=== PATIENT | male | born 1950 | race Caucasian/White ===

== ENCOUNTER → 2017-04-01 | Outpatient (CLI) | payer OTHER ==
[~2017-04-01] MED LIST: ALTACE5 MG PO; ATENOLOL PO; BUFFERED ASPIRIN; BUFFERED ASPIRIN PO; CHANTIX1 MG PO; CLOPIDOGREL; COMBIRESP IH; CRESTOR; GLUCOPHAGE500 MG/TAB PO; HCTZ PO; LIPITOR20 MG PO; LORTAB 5/500 501 TAB PO; NAPROXEN EC500 MG PO; NIACIN PO; NIASPAN375 MG PO; NITROQUICK0.4 MG SL; ZOCOR5 MG PO
== END ==
LOC: COL.RAD 11:59
DX: M79.661 Pain in right lower leg (principal)

== ENCOUNTER → 2017-04-28 | Outpatient (CLI) | payer OTHER | LOC: COL.RAD 04-22 13:30 | DX: M25.552 Pain in left hip (principal) | CPT/HCPCS: G0260; J3301 ==

== ENCOUNTER → 2018-03-01 | Outpatient (CLI) | payer OTHER | LOC: COL.RAD 12:44 | DX: M51.27 Other intervertebral disc displacement, lumbosacral region (principal); M51.37 Other intervertebral disc degeneration, lumbosacral region; M48.07 Spinal stenosis, lumbosacral region ==

== ENCOUNTER → 2018-04-18 | Outpatient (CLI) | payer OTHER | LOC: COL.RAD 14:00 | DX: M25.551 Pain in right hip (principal); M25.552 Pain in left hip | CPT/HCPCS: G0260; J3301 ==

== ENCOUNTER → 2018-08-24 | Outpatient (CLI) | payer OTHER | LOC: COL.RAD 14:17 | DX: M25.552 Pain in left hip (principal) ==

== ENCOUNTER → 2018-08-31 | Outpatient (CLI) | payer OTHER | LOC: COL.RAD 09:37 | DX: S39.92XA Unspecified injury of lower back, initial encounter (principal); M25.552 Pain in left hip; M25.551 Pain in right hip | CPT/HCPCS: G0260; J3301 ==

== ENCOUNTER 2018-10-31 01:01 | Observation (INO) | payer OTHER ==
[~2018-10-31] VITALS: Ht 172.7 cm; Wt 80.0 kg
[~2018-10-31 01:01] MED LIST changes: +ALTACE 2.5MG T2.5 MG PO; -ALTACE5 MG PO; -ATENOLOL PO; -CLOPIDOGREL; -NIACIN PO; +PLAVIX 75MG TAB75 MG PO; +SLO-NIACIN500 MG PO; +TENORMIN 5050 MG/TAB PO; +ZOCOR 80MG80 MG PO; -ZOCOR5 MG PO
[2018-10-31 01:40] LABS: BASO # 0.1 (0.0-0.2); BASO % 0.6 % (0.0-2.0); EOS # 0.1 (0.0-0.7); EOS % 0.8 % (0-4.0); GRAN # 7.2 (1.4-6.5); GRAN % 68.7 % (42.2-75.2); HEMATOCRIT 37.5 % (42.0-52.0); HEMOGLOBIN 12.4 g/dl (13.5-18.0); LYMPH # 2.4 (1.2-3.4); LYMPH % 22.7 % (20.0-51.0); MEAN CELL VOLUME 88 fl (80.0-100.0); MEAN CORPUSCULAR HEMOGLOBIN 29 pg (27.0-31.0); MEAN CORPUSCULAR HGB CONC 33 g/dl (33.0-37.0); MEAN PLATELET VOLUME 9.6 fl (7.4-10.4); MONO # 0.7 (0.1-0.6); MONO % 6.9 % (1.7-9.3); PLATELET COUNT 231 K/mm3 (130-400); RED BLOOD COUNT 4.24 M/mm3 (4.20-5.60)
[2018-10-31 01:48] LABS: ALANINE AMINOTRANSFERASE 36 U/L (21-72); ALBUMIN 3.8 gm/dL (3.5-5.0); ALCOHOL(ethanol),MEDICAL < 10 mg/dL; ALKALINE PHOSPHATASE 55 U/L (50-136); ANION GAP 3 mmol/L (7-16); AST,SGOT 35 U/L (15-37); BILIRUBIN,TOTAL 0.2 mg/dL (0.0-1.0); BLOOD UREA NITROGEN 21 mg/dL (9-20); CALCIUM 9.2 mg/dL (8.4-10.2); CARBON DIOXIDE 30 mmol/L (22-30); CHLORIDE 109 mmol/L (98-107); CREATININE, serum 0.98 mg/dL (0.66-1.25); GLUCOSE 112 mg/dL (74-106); LIPASE 78 U/L (23-300); MAGNESIUM 1.6 mg/dL (1.6-2.3); POTASSIUM 3.7 mmol/L (3.4-5.0); SODIUM 142 mmol/L (137-145); TOTAL PROTEIN 6.3 gm/dL (6.4-8.2)
[2018-10-31 01:49] LABS: ARTERIAL BLD GAS O2 SATURATION 89.6 % (92-100); ARTERIAL BLD GAS TCO2 CT 25.7; ARTERIAL BLOOD GAS BASE EXCESS -0.6 (-2-2); ARTERIAL BLOOD GAS HCO3 24.5 meq/L (22-26); ARTERIAL BLOOD GAS PO2 60.2 mmHg (80-100); ARTERIAL BLOOD GAS pH 7.38 (7.35-7.45)
[2018-10-31 02:00] LABS: TROPONIN-I < 0.012 ng/mL (0.000-0.034)
[2018-10-31] MEDS ORDERED: OMEGA-3 1000 MG1 CAP PO (03:24)
[2018-10-31] MEDS ORDERED: NEURONTIN100 MG/CAP PO (03:24)
[2018-10-31] MEDS ORDERED: ASPIRIN 32325 MG/TAB PO (03:25)
[2018-10-31 03:59] LABS: ARTERIAL BLD GAS O2 SATURATION 96.6 % (92-100); ARTERIAL BLD GAS TCO2 CT 23.9; ARTERIAL BLOOD GAS BASE EXCESS -2.8 (-2-2); ARTERIAL BLOOD GAS HCO3 22.6 meq/L (22-26); ARTERIAL BLOOD GAS PCO2 41.4 mmHg (35-45); ARTERIAL BLOOD GAS PO2 97.2 mmHg (80-100); ARTERIAL BLOOD GAS pH 7.36 (7.35-7.45)
[2018-10-31 05:33] LABS: COLLECTION METHOD CATHETER
[2018-10-31 05:40] LABS: PH 5 (5-8); SQUAMOUS EPITHELIAL None Seen /hpf; URINE APPEARANCE Clear; URINE BACTERIA None Seen /hpf; URINE BILIRUBIN Negative (NEGATIVE); URINE BLOOD Negative (NEGATIVE); URINE COLOR Yellow; URINE GLUCOSE 1+ (NEGATIVE); URINE KETONE Negative (NEGATIVE); URINE LEUKOCYTE ESTERASE Negative (NEGATIVE); URINE NITRATE Negative (NEGATIVE); URINE PROTEIN(semi-quant) Negative (NEGATIVE); URINE RBC 0-2 /hpf; URINE UROBILINOGEN Negative (NEGATIVE)
[2018-10-31 05:46] LABS: TRICYCLIC ANTIDEPRESS URINE NEGATIVE
--- NOTE | 2018-10-31 07:20 | NUR ---
Pt is sleeping wtih Bipap applied, woke to voice and A+Ox3. Will monitor.
[2018-10-31 07:28] LABS: BASO % 0.5 % (0.0-2.0); EOS % 0.4 % (0-4.0); GRAN % 60.4 % (42.2-75.2); HEMOGLOBIN 11.7 g/dl (13.5-18.0); LYMPH # 2.4 (1.2-3.4); LYMPH % 29.7 % (20.0-51.0); MEAN CELL VOLUME 89 fl (80.0-100.0); MEAN CORPUSCULAR HEMOGLOBIN 29 pg (27.0-31.0); MEAN CORPUSCULAR HGB CONC 33 g/dl (33.0-37.0); MEAN PLATELET VOLUME 9.8 fl (7.4-10.4); MONO # 0.7 (0.1-0.6); MONO % 8.8 % (1.7-9.3); PLATELET COUNT 216 K/mm3 (130-400); RED BLOOD COUNT 4.02 M/mm3 (4.20-5.60); REDCELL DISTRIBUTION WIDTH-CV 14.2 % (11.5-14.5)
[2018-10-31 07:35] LABS: CALCIUM 8.9 mg/dL (8.4-10.2); CREATININE, serum 0.82 mg/dL (0.66-1.25); POTASSIUM 4.1 mmol/L (3.4-5.0)
[2018-10-31 07:36] LABS: HEMATOCRIT 35.7 % (42.0-52.0)
[2018-10-31 07:45] VITALS: BP 121/50; PULSE 54; TEMP 98.4
--- NOTE | 2018-10-31 08:45 | NUR ---
Pt is A+Ox3, pleasant, denies pain and SOB, bipap applied. Physical assessment completed. IV to LW s redness/swelling, fluids infusing. No needs at thsi time, call light in reach
[2018-10-31 11:11] VITALS: BP 133/59; PULSE 57; TEMP 97.9
--- NOTE | 2018-10-31 13:00 | NUR ---
Pt wearing 5L oxygen via oxymask and satting in upper 90's. Will continue to monitor, RT weaning. Pt has been sleeping most of day, he is still very mellow and jolly but becoming less intoxicated. Denies pain, SOB, assisted with ordering food. No furtehr needs
--- NOTE | 2018-10-31 13:49 | NUR ---
Plan to return hoe with spouse Glenny . Pt reports that he has no needs. DPOA is shared with spouse and Son. Denies DME, PCP Dr. Yanes, RX obtain from [facility]. DCL issues with obtaining medications. No additional needs identified.
[2018-10-31 15:46] VITALS: BP 132/64; PULSE 62; TEMP 97.9
--- NOTE | 2018-10-31 19:00 | NUR ---
This RN found pt with no oxygen applied, pt reported forgetting to reapply after walking to bathroom 30 min ago. O2 was 95% on RA, so this RN left it off. Report given to Neida SOLIS, pt denies needs, dinner cleared
--- NOTE | 2018-10-31 20:20 | NUR ---
Shift assessment complete. Pt resting in bed, awake, a&o, friendly et cooperative c cares. Pt denies pain or any other c/o. INT patent. Tele in place. Pt recently amb ind to BR et forgot to put O2 back on, sats maintained >95% while on RA. Will continue to monitor O2 et resp status closely. Pt denies needs. Call light in reach, will monitor.
[2018-10-31 22:28] VITALS: BP 127/44; PULSE 65; TEMP 98.1
[2018-11-01 04:22] VITALS: PULSE 52
--- NOTE | 2018-11-01 07:01 | NUR ---
Pt resting in bed, condition unchanged. Pt has rested well this shift c very few needs. No O2 needs this shift c sats maintained >92%. Pt has denied N/V, syncope or any other c/o this shift. Tele in place. Pt s needs. Call light in reach. Report given to Marta SOLIS to assume pt cares.
[2018-11-01 08:05] VITALS: BP 140/58; PULSE 52; TEMP 97.9
--- NOTE | 2018-11-01 10:23 | NUR ---
Pt assessment complete. Pt had carotid U/S completed this am. Pt is A/O x3. His breathing is even and unlabored on 2L O2 via NC. Pt denies SOB. No pain at this time. POC discussed with patient who verbalizes understanding. No further needs at this time. Call light within reach.
[2018-11-01 11:35] VITALS: BP 157/59; PULSE 52; TEMP 97.6
[2018-11-01] MEDS ORDERED: ZITHROMAX500 M2 PO (12:09)
[2018-11-01] MEDS ORDERED: CEFTIN500 MG PO (12:10)
--- NOTE | 2018-11-01 13:12 | NUR ---
Discharge paperwork and instructions reviewed with patient, all questions answered at this time. IV to R hand dc'd catheter tip intact. Pt awaiting ride.
--- NOTE | 2018-11-01 13:32 | NUR ---
Pt walked out of facility at this time.
== END 2018-11-01 13:33 | disposition home or self-care (01) ==
LOC: COL.ER 01:01 → MEDICAL 04:29
PROVIDERS: Emergency Medicine; Nurse Practitioner Family; ADMIT Internal Medicine
DX: R55 Syncope and collapse (principal); I25.10 Atherosclerotic heart disease of native coronary artery without angina pectoris; I10 Essential (primary) hypertension; E78.5 Hyperlipidemia, unspecified; E11.9 Type 2 diabetes mellitus without complications; Z79.02 Long term (current) use of antithrombotics/antiplatelets; Z95.5 Presence of coronary angioplasty implant and graft; Z79.84 Long term (current) use of oral hypoglycemic drugs; Z88.8 Allergy status to other drugs, medicaments and biological substances; Z79.82 Long term (current) use of aspirin; Z87.891 Personal history of nicotine dependence; Z86.73 Personal history of transient ischemic attack (TIA), and cerebral infarction without residual deficits; Z82.3 Family history of stroke
CPT/HCPCS: 99239; A4216; G0378; J0696; J2405; J7030

== ENCOUNTER 2019-05-30 10:15 | Outpatient (RCR) | payer OTHER ==
[~2019-05-30 10:15] MED LIST changes: +ASPIRIN 32325 MG/TAB PO; +CEFTIN500 MG PO; +NEURONTIN100 MG/CAP PO; +OMEGA-3 1000 MG1 CAP PO; +ZITHROMAX500 M2 PO
== END 2019-08-16 | disposition still patient (30) ==
LOC: WSOT
DX: M19.031 Primary osteoarthritis, right wrist (principal)

== ENCOUNTER → 2021-07-28 | Outpatient (CLI) | payer OTHER | LOC: COL.RAD 07:30 | DX: K63.89 Other specified diseases of intestine (principal); Z87.19 Personal history of other diseases of the digestive system | CPT/HCPCS: Q9967 ==

== ENCOUNTER 2022-03-29 18:33 | Emergency (ER) | payer OTHER ==
[~2022-03-29] VITALS: Ht 172.7 cm; Wt 77.3 kg
[2022-03-29 18:38] VITALS: TEMP 97.5
[2022-03-29 20:00] VITALS: BP 136/78; PULSE 72
== END 2022-03-29 20:00 | disposition home or self-care (01) ==
LOC: COL.ER 18:33
DX: S62.647A Nondisplaced fracture of proximal phalanx of left little finger, initial encounter for closed fracture (principal); S00.83XA Contusion of other part of head, initial encounter; Z79.01 Long term (current) use of anticoagulants; V00.831A Fall from motorized mobility scooter, initial encounter; Y92.830 Public park as the place of occurrence of the external cause

== ENCOUNTER → 2022-06-22 | Outpatient (CLI) | payer MEDICARE, OTHER ==
[~2022-06-22] MED LIST changes: +CEPHALEXIN500 M1 PO; +COREG 3.123.125 MG/T PO; +CVS SPECTRAVIT1 EA15 PO; +ISORDIL TITRADO30 MG PO; +MAGNESIUM250 M1 PO; +NORCO 325 MG-51 TAB PO; +PROTONIX 40MG T40 MG PO; +REQUIP3 MG PO; +TUMERIC; +ULTRAM ER100 MG PO; +ZETIA 10MG TAB10 MG PO
== END ==
LOC: COL.RAD 10:38
DX: K57.30 Diverticulosis of large intestine without perforation or abscess without bleeding (principal); I70.0 Atherosclerosis of aorta; I70.8 Atherosclerosis of other arteries
CPT/HCPCS: Q9967

== ENCOUNTER 2023-09-28 15:38 | Outpatient (RCR) | payer MEDICARE, OTHER ==
[~2023-09-28 15:38] MED LIST changes: +ARICEPT10 MG PO; +ASTELIN NASAL S34 ML NS; +FLEXERIL 1010 MG/TAB PO; +GLUCOPHAGE XR750 MG PO; +IMDUR 30MG30 MG/TAB PO; +IMDUR 60MG60 MG/TAB PO; +LIPITOR 10MG10 MG PO; +NITROSTAT0.4 MG/TAB SL; +PREDNISONE20 MG PO; +PROAIR HFA0.09 MG/AC IH; +REQUIP4 MG PO; +RT ADVAIR 128 DISKUS IH; +XANAX 0.5MG0.5 MG PO; +ZOLOFT 100MG100 MG PO; +ZOLOFT 50MG50 MG PO
== END 2023-09-29 | disposition home or self-care (01) ==
LOC: COL.CR
DX: Z48.812 Encounter for surgical aftercare following surgery on the circulatory system (principal); Z95.1 Presence of aortocoronary bypass graft

== ENCOUNTER 2023-10-21 15:06 | Outpatient (RCR) | payer MEDICARE, OTHER | END 2023-10-30 | disposition home or self-care (01) | LOC: COL.CR | DX: Z48.812 Encounter for surgical aftercare following surgery on the circulatory system (principal); Z95.1 Presence of aortocoronary bypass graft ==

== ENCOUNTER → 2023-12-22 | Outpatient (CLI) | payer MEDICARE, OTHER ==
[~2023-12-22] MED LIST changes: +Iohexol 300 - 10 ML VIAL ONE; +Lidocaine PF 2% (20 MG/ML) 2 ML VIAL ONE
== END ==
LOC: MHCPAIN 08:26
DX: M54.16 Radiculopathy, lumbar region (principal)
CPT/HCPCS: J1100; Q9967

== ENCOUNTER → 2024-01-11 | Outpatient (CLI) | payer MEDICARE, OTHER ==
[~2024-01-11] MED LIST changes: -Iohexol 300 - 10 ML VIAL ONE; -Lidocaine PF 2% (20 MG/ML) 2 ML VIAL ONE
== END ==
LOC: COL.RAD 15:03
DX: M47.816 Spondylosis without myelopathy or radiculopathy, lumbar region (principal); M43.16 Spondylolisthesis, lumbar region; S22.089D Unspecified fracture of T11-T12 vertebra, subsequent encounter for fracture with routine healing; X58.XXXD Exposure to other specified factors, subsequent encounter

== ENCOUNTER → 2024-01-23 | Outpatient (CLI) | payer MEDICARE, OTHER ==
[~2024-01-23] MED LIST changes: +Iohexol 300 - 10 ML VIAL ONE; +Lidocaine PF 2% (20 MG/ML) 2 ML VIAL ONE
== END ==
LOC: MHCPAIN 15:12
DX: M54.16 Radiculopathy, lumbar region (principal)
CPT/HCPCS: J1040; Q9967

== ENCOUNTER → 2024-02-03 | Day surgery (SDC) | payer MEDICARE, OTHER ==
[~2024-02-03] VITALS: Ht 167.6 cm; Wt 81.8 kg
[~2024-02-03] MED LIST changes: +ASPIRIN E.C. 8181 MG PO; +FLOMAX 0.40.4 MG/CAP PO; -Iohexol 300 - 10 ML VIAL ONE; +LIPITOR 40MG TA40 MG PO; +LR 1,000 ML IV SCH; -Lidocaine PF 2% (20 MG/ML) 2 ML VIAL ONE; +Lidocaine PF 2% (20 MG/ML) 5 ML VIAL ONE; +Ondansetron 4 MG/2 ML VIAL IV PRN; +ZYLOPRIM 100MG100 MG PO
[2024-02-03 11:39] VITALS: BP 146/72; PULSE 56; TEMP 97.8
[2024-02-03 12:20] VITALS: BP 111/75; PULSE 72; TEMP 98
[2024-02-03 12:35] VITALS: BP 127/73; PULSE 70; TEMP 98.1
--- NOTE | 2024-02-03 12:57 | NUR ---
1220: Pt to room 7 - ambulated with standby asssit to chair. Vitals initiated and stable. Call light in reach. Pt denies pain or nausea 1224: Pt tolerating clear liquids and muffin well 1243: MD Cliff at bedside 1250: Pt verbalizes discharge education - copy with pt 1259: at bedside. Pt escorted out via wheelchair
[2024-02-03 13:00] VITALS: BP 125/70; PULSE 77
== END ==
LOC: SDCO 01-24 09:30
DX: D50.9 Iron deficiency anemia, unspecified (principal); K21.9 Gastro-esophageal reflux disease without esophagitis; K22.70 Barrett's esophagus without dysplasia; R04.0 Epistaxis; Z95.1 Presence of aortocoronary bypass graft; F17.210 Nicotine dependence, cigarettes, uncomplicated; Z70.2 Counseling related to sexual behavior and orientation of third party; Z95.5 Presence of coronary angioplasty implant and graft
CPT/HCPCS: J2704; J7120

== ENCOUNTER → 2024-02-22 | Outpatient (CLI) | payer MEDICARE, OTHER ==
[~2024-02-22] MED LIST changes: -LR 1,000 ML IV SCH; -Lidocaine PF 2% (20 MG/ML) 5 ML VIAL ONE; -Ondansetron 4 MG/2 ML VIAL IV PRN
== END ==
LOC: MHCPAIN 12:49
DX: M48.062 Spinal stenosis, lumbar region with neurogenic claudication (principal); M47.816 Spondylosis without myelopathy or radiculopathy, lumbar region
CPT/HCPCS: G0463

== ENCOUNTER 2024-02-29 14:27 | Emergency (ER) | payer MEDICARE, OTHER ==
[~2024-02-29] VITALS: Ht 170.2 cm; Wt 81.8 kg
[2024-02-29 14:34] VITALS: TEMP 97.9
[2024-02-29 15:36] LABS: BASO # 0.1 K/mm3 (0.0-0.2); BASO % 0.6 % (0.0-2.0); EOS # 0.2 K/mm3 (0.0-0.7); EOS % 2.2 % (0.0-4.0); GRAN # 5.9 K/mm3 (1.4-6.5); GRAN % 68.8 % (42.2-75.2); HEMOGLOBIN 11.8 g/dl (13.5-18.0); LYMPH # 1.7 K/mm3 (1.2-3.4); LYMPH % 19.9 % (20.0-51.0); MEAN CELL VOLUME 90 fl (80.0-100.0); MEAN CORPUSCULAR HEMOGLOBIN 30 pg (27-31); MEAN CORPUSCULAR HGB CONC 34 g/dl (33.0-37.0); MEAN PLATELET VOLUME 9.3 fl (7.4-10.4); MONO # 0.7 K/mm3 (0.1-0.6); MONO % 8.3 % (1.7-9.3); PLATELET COUNT 301 K/mm3 (130-400); RED BLOOD COUNT 3.91 M/mm3 (4.20-5.60); REDCELL DISTRIBUTION WIDTH-CV 14.6 % (11.5-14.5)
[2024-02-29 15:49] LABS: HEMATOCRIT 35.1 % (42.0-52.0)
[2024-02-29 15:58] LABS: ALBUMIN 3.2 g/dL (3.4-4.8); BILIRUBIN,TOTAL 0.4 mg/dL (0.2-1.2); CALCIUM 9.6 mg/dL (8.4-10.2); CREATININE, serum 1.4 mg/dL (0.72-1.25); POTASSIUM 4.5 mEq/L (3.5-4.5); TOTAL PROTEIN 6.7 g/dl (6.2-8.1)
[2024-02-29] MEDS ORDERED: Iohexol 300 - 100 ML VIAL IV ONE (16:33)
[2024-02-29] MEDS ORDERED: NS 100 ML IV SCH (16:34)
[2024-02-29 17:53] VITALS: BP 134/66; PULSE 76
== END 2024-02-29 17:53 ==
LOC: COL.ER 14:27
PROVIDERS: Family Medicine
DX: I97.648 Postprocedural seroma of a circulatory system organ or structure following other circulatory system procedure (principal)
CPT/HCPCS: Q9967